=== PATIENT | female | born 2000 | race Caucasian/White ===

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

== ENCOUNTER 2020-06-09 13:07 | Emergency (ER) | payer MEDICAID ==
[~2020-06-09] VITALS: Ht 165.1 cm; Wt 63.5 kg
[2020-06-09 14:25] VITALS: BP_SYST 116
[2020-06-09] MEDS: NACL 0.9% 1,000 ML IV ONE (15:03)
[2020-06-09] MEDS: HALOPERIDOL LACTATE 5 MG/ML VIAL IVP ONE (15:04)
[2020-06-09] MEDS: KETOROLAC TROMETHAMINE 30 MG VIAL IVP ONE (15:04)
[2020-06-09 15:45] LABS: BASOPHILS # (AUTO) 0.1 K/uL (0.0-0.2); BASOPHILS % (AUTO) 0.7 % (0.0-2.0); EOSINOPHILS % (AUTO) 0.2 % (0.0-4.0); HEMOGLOBIN 13.8 g/dL (12.0-16.0); LYMPHOCYTES # (AUTO) 1.3 K/uL (1.0-5.5); LYMPHOCYTES % (AUTO) 12.3 % (20.5-51.5); MEAN CORPUSCULAR HEMOGLOBIN 32 pg (27-31); MEAN CORPUSCULAR HGB CONC 35 % (32-36); MEAN CORPUSCULAR VOLUME 93 fL (79.0-98.0); MONOCYTES # (AUTO) 0.9 K/uL (0.0-1.0); MONOCYTES % (AUTO) 8.5 % (1.7-9.3); NEUTROPHILS % (AUTO) 78.3 % (40.0-70.0); PLATELET COUNT (AUTO) 242 K/uL (130-430); RED BLOOD CELL COUNT(AUTO) 4.31 MIL/uL (4.2-6.2); RED CELL DISTRIBUTION WIDTH 13.5 % (9.0-15.0); WHITE BLOOD COUNT (AUTO) 10.2 K/uL (4.5-11.0)
[2020-06-09 15:58] LABS: CALCIUM 8.5 mg/dL (8.4-11.0); CREATININE 0.76 mg/dL (0.55-1.30); POTASSIUM 3.5 mmol/L (3.5-5.1)
[2020-06-09 16:03] LABS: ALBUMIN 4.1 g/dL (3.4-4.8); TOTAL BILIRUBIN 1.1 mg/dL (0.0-1.0)
[2020-06-09 17:24] VITALS: BP_SYST 120
== END 2020-06-09 17:24 | disposition home or self-care (01) ==
LOC: SED 13:07
DX: N39.0 Urinary tract infection, site not specified (principal); R10.84 Generalized abdominal pain; K21.9 Gastro-esophageal reflux disease without esophagitis; J45.909 Unspecified asthma, uncomplicated; F41.9 Anxiety disorder, unspecified; F12.90 Cannabis use, unspecified, uncomplicated; Z86.2 Personal history of diseases of the blood and blood-forming organs and certain disorders involving the immune mechanism
CPT/HCPCS: 36415; 80053; 81002; 81025; 83690-TC; 85025; 96361; 96374; 96375; 99284

== ENCOUNTER 2020-08-18 10:10 | Emergency (ER) | payer MEDICAID ==
[~2020-08-18] VITALS: Ht 162.6 cm; Wt 70.8 kg
[2020-08-18 10:15] VITALS: BP_SYST 127
--- NOTE | 2020-08-18 10:15 | NUR ---
DR. CHEUNG IN THE TENT TO EVALUATE PT
--- NOTE | 2020-08-18 10:17 | NUR ---
Patient to ER bed 5 to gown for evaluation. Side rails up.
--- NOTE | 2020-08-18 10:20 | NUR ---
PT CAME IN FROM HOME REPORTS THAT THIS MORNING AROUND 0300 SHE HAD A SYCOPAL EPISODE IN HER ROOM X2 UNWITNESSED. PT WAS FEELING NAUSEOUS AND TRIED TO WALK TO THE BATHROOM WHEN SHE WAS WOKEN UP BY A STAFF MEMBER AT HER [facility] AND ASSISTED TO HER BED. PT DOES NOT KNOW IF SHE HIT HER HEAD. SHE DENIES TRAN, DIZZINESS AT THIS TIME. SHE STATES SHE HAS NOT EATEN SINCE 0700 YESTERDAY. HX OF GASTROPARESIS, GASTRITIS, ANEMIA. TAKES TRAZADONE FOR SLEEP.
[2020-08-18] MEDS ORDERED: NACL 0.9% 1,000 ML IV ONE (10:30)
[2020-08-18 11:12] LABS: ANION GAP 10 (5-15); CALCIUM 9.1 mg/dL (8.4-11.0); CHLORIDE 103 mmol/L (98-107); CREATININE 0.82 mg/dL (0.55-1.30); GLUCOSE 92 mg/dL (70-99); SODIUM SERUM 136 mmol/L (136-145); UREA NITROGEN, BLOOD 10 mg/dL (8-21)
[2020-08-18 11:15] LABS: GFR AFRICAN AMERICAN 114 mL/min (>90)
[2020-08-18 11:17] LABS: BILIRUBIN,URINE NEGATIVE (NEGATIVE); BLOOD, URINE 1+ (NEGATIVE); COLOR,URINE YELLOW (YELLOW); GLUCOSE,URINE NEGATIVE (NEGATIVE); KETONES,URINE NEGATIVE (NEGATIVE); LEUKOCYTE ESTERASE ,URINE 2+ (NEGATIVE); NITRITE, URINE POSITIVE (NEGATIVE); PROTEIN URINE NEGATIVE (NEGATIVE); UROBILINOGEN,URINE 0.2 (0.2-1.0)
[2020-08-18 11:17] LABS: ALANINE AMINOTRANSFERASE 22 U/L (12-78); ALBUMIN 4.2 g/dL (3.4-4.8); ASPARTATE AMINOTRANSFERASE 12 U/L (10-37); TOTAL BILIRUBIN 0.8 mg/dL (0.0-1.0)
[2020-08-18 11:18] LABS: ALCOHOL, BLOOD < 3 mg/dL (<10)
--- NOTE | 2020-08-18 11:26 | NUR ---
PORTABLE X-RAY AT THE BEDSIDE
[2020-08-18 11:53] LABS: BASOPHILS # (AUTO) 0.1 K/uL (0.0-0.2); BASOPHILS % (AUTO) 1.5 % (0.0-2.0); EOSINOPHILS % (AUTO) 0.2 % (0.0-4.0); HEMATOCRIT 39.7 % (36-48); HEMOGLOBIN 13.9 g/dL (12.0-16.0); LYMPHOCYTES # (AUTO) 1.1 K/uL (1.0-5.5); LYMPHOCYTES % (AUTO) 11.4 % (20.5-51.5); MEAN CORPUSCULAR HEMOGLOBIN 33 pg (27-31); MEAN CORPUSCULAR HGB CONC 35 % (32-36); MEAN CORPUSCULAR VOLUME 93 fL (79.0-98.0); MONOCYTES # (AUTO) 0.7 K/uL (0.0-1.0); MONOCYTES % (AUTO) 7.9 % (1.7-9.3); NEUTROPHILS # (AUTO) 7.5 K/uL (1.8-7.7); PLATELET COUNT (AUTO) 220 K/uL (130-430); RED BLOOD CELL COUNT(AUTO) 4.28 MIL/uL (4.2-6.2); RED CELL DISTRIBUTION WIDTH 13.4 % (9.0-15.0); WHITE BLOOD COUNT (AUTO) 9.5 K/uL (4.5-11.0)
[2020-08-18 12:02] LABS: CLARITY/URINE SLIGHTLY CLOUDY (CLEAR)
[2020-08-18 12:15] LABS: BACTERIA,URINE None Seen /HPF (None Seen); YEAST,URINE None Seen /HPF (None Seen)
[2020-08-18] MEDS ORDERED: SULFAMETHOXAZOLE/TRIMETHOPR DS 1 TABLET PO ONE (12:30)
--- NOTE | 2020-08-18 12:30 | NUR ---
PT RESTING IN BED, NO S/SX OF DISTRESS
[2020-08-18 12:43] LABS: BARBITURATE, URINE NEGATIVE (NEG <=200); BENZODIAZEPINE, URINE NEGATIVE (NEG <=150); CANNABINOID, URINE POSITIVE (NEG <=50); COCAINE, URINE NEGATIVE (NEG <=150); METHAMPHETAMINES SCREEN,URINE NEGATIVE (NEG <=500); OPIATE, URINE NEGATIVE (NEG <=100); PHENCYCLIDINE SCREEN,URINE NEGATIVE (NEG <=25); UR TRICYCLIC ANTIDEPRESSANTS NEGATIVE (NEG <=300); URINE AMPHETAMINE NEGATIVE (NEG <=500); URINE METHADONE NEGATIVE (NEG <=200); URINE OXYCODONE SCREEN NEGATIVE (NEG <=100); URINE PROPOXYPHENE SCREEN NEGATIVE (NEG <=300)
[2020-08-18] MEDS ORDERED: SULF1TAB48 PO ×2 (13:20→13:21)
[2020-08-18] MEDS ORDERED: AZITHROMYCIN 500 MG in NS 250 ML IV ONE (13:30)
[2020-08-18] MEDS: LEVOFLOXACIN 500 MG/D5W 100 ML IV ONE ×2 (13:30→13:38)
[2020-08-18 13:52] VITALS: BP_SYST 124
--- NOTE | 2020-08-18 13:53 | NUR ---
Patient given written and verbal discharge instructions and verbalizes understanding. ER MD discussed with patient the results and treatment provided. Patient in stable condition. ID arm band removed. IV catheter removed intact and dressing applied, no active bleeding. Rx of BACTRIM given. Patient educated on pain management and to follow up with PMD. Pain Scale 0/10. Opportunity for questions provided and answered. Medication side effect fact sheet provided.
[2020-08-18 18:08] LABS: CHOLESTEROL 137 mg/dL (<200); HDL CHOLESTEROL 50 mg/dL (>55); LDL CHOLESTEROL 84 mg/dL (<100); TRIGLYCERIDES 28 mg/dL (30-150)
== END 2020-08-18 13:52 | disposition home or self-care (01) ==
LOC: SED 10:10
DX: R55 Syncope and collapse (principal); N39.0 Urinary tract infection, site not specified; J45.909 Unspecified asthma, uncomplicated; K21.9 Gastro-esophageal reflux disease without esophagitis; F41.9 Anxiety disorder, unspecified; F32.9 Major depressive disorder, single episode, unspecified; F12.90 Cannabis use, unspecified, uncomplicated; Z86.2 Personal history of diseases of the blood and blood-forming organs and certain disorders involving the immune mechanism; Z88.1 Allergy status to other antibiotic agents; Z88.6 Allergy status to analgesic agent
CPT/HCPCS: 36415; 71045; 80053; 80061; 80307; 81000; 81025; 82550; 83880; 84484; 85025; 87086; 93005; 96360; 99285; G0482; J7030

== ENCOUNTER 2020-11-13 23:06 | Emergency (ER) | payer MEDICAID ==
[~2020-11-13] VITALS: Ht 162.6 cm; Wt 72.6 kg
[~2020-11-13 23:06] MED LIST changes: -PRO40 PO; +SULF1TAB48 PO
[2020-11-13 23:17] VITALS: BP_SYST 124
--- NOTE | 2020-11-13 23:20 | NUR ---
Patient AAOx4 and ambulatory arrived to ED c/o abdominal pain with N/V x 8 hours. Denies any diarrhea, SOB or chest pain. Currently stating 10/10 on the pain scale. Hx of asthma or anemia. urine specimen collected and sent to lab for analysis.
--- NOTE | 2020-11-13 23:20 | NUR ---
Patient to ER bed 5 to gown for evaluation. Side rails up. Report given to ROQUE ECHOLS.
[2020-11-13] MEDS: ONDANSETRON 4 MG ODT TAB PO ONE (23:30)
[2020-11-13 23:31] LABS: BILIRUBIN,URINE NEGATIVE (NEGATIVE); BLOOD, URINE NEGATIVE (NEGATIVE); CLARITY/URINE CLEAR (CLEAR); COLOR,URINE YELLOW (YELLOW); GLUCOSE,URINE NEGATIVE (NEGATIVE); KETONES,URINE 3+ (NEGATIVE); LEUKOCYTE ESTERASE ,URINE NEGATIVE (NEGATIVE); NITRITE, URINE NEGATIVE (NEGATIVE); PH,URINE 6.5 (5.0-8.0); PROTEIN URINE NEGATIVE (NEGATIVE); UROBILINOGEN,URINE 0.2 (0.2-1.0)
--- NOTE | 2020-11-13 23:35 | NUR ---
Dr. Raygoza at bedside for patient evaluation.
[2020-11-13] MEDS: METOCLOPRAMIDE HCL 10 MG TABLET PO ONE (23:42)
--- NOTE | 2020-11-13 23:42 | NUR ---
medication administered as ordered.
[2020-11-14] MEDS ORDERED: METO-290 PO (00:28)
--- NOTE | 2020-11-14 00:36 | NUR ---
Patient given written and verbal discharge instructions and verbalizes understanding. Dr. Jaret MATIAS MD discussed with patient the results and treatment provided. Patient in stable condition. ID arm band removed. Rx of Reglan sent. Patient educated on pain management and to follow up with PMD. Pain Scale 0/10. Opportunity for questions provided and answered. Medication side effect fact sheet provided. Patient tolerated fluid intake without any furhter episodes of N/V.
[2020-11-14 00:37] VITALS: BP_SYST 124
== END 2020-11-14 00:36 | disposition home or self-care (01) ==
LOC: SED 23:06
DX: F43.20 Adjustment disorder, unspecified (principal); R11.2 Nausea with vomiting, unspecified; J45.909 Unspecified asthma, uncomplicated; K21.9 Gastro-esophageal reflux disease without esophagitis; F41.9 Anxiety disorder, unspecified; F32.9 Major depressive disorder, single episode, unspecified; Z88.1 Allergy status to other antibiotic agents; Z88.6 Allergy status to analgesic agent
CPT/HCPCS: 81003; 99283; J8597; Q0162